=== PATIENT | male | born 1990 | race Caucasian/White ===

== ENCOUNTER 2023-04-28 12:24 | Outpatient (OUT) | payer OTHER, SELFPAY ==
--- NOTE | 2023-04-28 12:33 | XR_ITS ---
The [address] [address] Patient Name: CARMEN JONES MRN: [id number] date: 1990 Sex: M Assigned Patient Location: [facility] [[email or web address] Accession/Order Number: [id number] Exam Date: 04/28/2023 13:00 Report Date: 04/28/2023 13:20 At the request of: CINDY BELL Procedure: XR chest 2V EXAM: XR chest 2V HISTORY: PRE OP EXAM COMPARISON: None. TECHNIQUE: PA and lateral views of the chest. FINDINGS: The cardiomediastinal silhouette is normal. No focal consolidation is identified. There is no pneumothorax. No pleural effusion is noted. The osseous structures are intact. XR/XR chest 2V IMPRESSION: No acute cardiopulmonary process. Electronically authenticated by: JUAN TERRY Date: 04/28/2023 13:20
--- NOTE | 2023-04-28 13:06 | PM.PRESUREVA ---
History of Present Illness History of Present Illness Chief complaint: left thumb ulnar collateral ligament tear Narrative: Patient presents for preadmission testing. Please see HPI from Dr. Zhu dated 04/28/2023. Review of Systems ROS Narrative REVIEW OF SYSTEMS: Negative except as stated in HPI, ten or more systems reviewed. Constitutional: No fever , chills, weakness ENT: No sore throat or epistaxis Cardiovascular: No edema, chest pain, palpitations, or activity intolerance Respiratory: No shortness of breath, cough, or wheezing Gastrointestinal: No abdominal pain, constipation, diarrhea, or vomiting Genitourinary: No dysuria or hematuria Neurological: No numbness, tingling, weakness, or headache Psychiatric: No mood changes PFSH PFS Medical History (Updated 04/28/23 @ 12:50 by Caty Paulino NP) Surgical History (Updated 04/28/23 @ 12:50 by Caty Paulino NP) Social History (Updated 04/28/23 @ 12:48 by Caty Paulino NP) Within the past year, how often did you have a drink containing alcohol: never Score interpretation: A score less than 4 is consistent with normal alcohol consumption. 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 Highest level of school completed/degree received: high school graduate Meds Home Medications and Allergies Home Medications Medication Instructions Recorded Confirmed Type eluxadoline 100 mg tablet (Viberzi) 100 mg PO BID 04/28/23 04/28/23 History hydrocodone 5 mg-acetaminophen 325 1 tab PO Q6H PRN pain 04/28/23 04/28/23 History mg tablet omeprazole 40 mg capsule,delayed 40 mg PO DAILY 04/28/23 04/28/23 History release Allergies Allergy/AdvReac Type Severity Reaction Status Date / Time No Known Drug Allergies Allergy Verified 04/28/23 12:46 Exam Narrative Exam Narrative: Constitutional: Awake, alert, comfortable, well-appearing, nontoxic, interactive, vital signs as charted Head: Normocephalic, atraumatic Neck: Supple, normal appearance, normal range of motion, no meningeal signs, no lymphadenopathy Respiratory: No respiratory distress, breath sounds clear Cardiovascular: Regular rate and rhythm, strong and regular heart tones Psychiatric: Oriented ?3, normal affect Assessment and Plan Assessment and Plan (1) Ligament tear: Plan Left thumb ulnar collateral ligament repair versus reconstruction with palmaris longus, possible pinning scheduled with Dr. Zhu 05/01/2023.
[2023-04-28 13:26] LABS: Basophils Percent Auto 0.3 % (0.2-2.0); Eosinophils Percent Auto 0.7 % (0.9-7.0); Hematocrit 43.7 % (42.0-54.0); Hemoglobin 14.9 g/dL (14.0-18.0); Immature Granulocytes Abs Auto 0.02 10^3/uL (0.00-0.03); Immature Granulocytes Pct Auto 0.3 % (0.0-0.5); Lymphocytes Absolute Auto 1.8 10^3/uL (1.2-3.8); Lymphocytes Percent Auto 30.2 % (20.5-60.0); Mean Corpuscular HGB Conc 34.1 g/dL (29.9-35.2); Mean Corpuscular Hemoglobin 30.4 pg (25.9-34.0); Mean Corpuscular Volume 89.2 fL (80.0-94.0); Mean Platelet Volume 11.8 fL (9.5-13.5); Monocytes Absolute Auto 0.6 10^3/uL (0.3-0.8); Monocytes Percent Auto 9.5 % (1.7-12.0); Neutrophils Absolute Auto 3.5 10^3/uL (1.4-6.5); Platelet Count 153 10^3/uL (150-450)
[2023-04-28 13:37] LABS: Anion Gap 13.6; BUN Creatinine Ratio 19.4; Calcium 9.3 mg/dL (8.5-10.1); Carbon Dioxide 28.9 mmol/L (21.0-32.0); Chloride 104 mmol/L (98-107); Estimated GFR (African America >60 (>=60); Estimated GFR (Non-African Ame >60 (>=60); Glucose 91 mg/dL (74-106); Potassium 3.5 mmol/L (3.5-5.1); Sodium 143 mmol/L (136-145)
== END 2023-04-28 12:25 | disposition home or self-care (01) ==
PROVIDERS: Visit Provider Orthopaedic Surgery
DX: Z01.810 Encounter for preprocedural cardiovascular examination (principal); Z01.812 Encounter for preprocedural laboratory examination; S63.682A Other sprain of left thumb, initial encounter; F17.290 Nicotine dependence, other tobacco product, uncomplicated
CPT/HCPCS: 36415; 71046; 80048; 85025; G0463

== ENCOUNTER 2023-05-01 11:31 | Day surgery (SDC) | payer OTHER, SELFPAY ==
[2023-04-28 13:03] VITALS: BP 123/77; PULSE 67; RESP 16; TEMP 36.6; O2SAT 95; BMI 23.8
[2023-05-01] VITALS (9 sets, daily range): BP systolic 123–169; BP diastolic 76–106; PULSE 64–88; RESP 10–26; TEMP 36.2–36.9; O2SAT 97–100; BMI 23.8
--- NOTE | 2023-05-01 | XR_ITS ---
The [address] [address] Patient Name: CARMEN JONES MRN: [id number] date: 1990 Sex: M Assigned Patient Location: [facility] Current Patient Location: Accession/Order Number: [id number] Exam Date: 05/01/2023 13:30 Report Date: 05/01/2023 15:49 At the request of: CINDY BELL Procedure: XR finger LT min 2V EXAM: XR finger LT min 2V HISTORY: LT THUMB ULNAR COLLATERAL LIGAMENT REPAIR COMPARISON: None. XR/XR finger LT min 2V Impression: 1. Operative fluoroscopy was provided and 3 spot images of the left first phalanx were obtained. Electronically authenticated by: NATALIE DAVIS Date: 05/01/2023 15:49
[2023-05-01] MEDS: LACTATED RINGER'S SOLUTION 1,000 ML 50 ML IV (12:10)
[2023-05-01] MEDS: CEFAZOLIN SODIUM/DEXTROSE,ISO 2 GM/50 ML PIGGYBACK IV (13:25)
[2023-05-01] MEDS: BUPIVACAINE HCL 0.5% PF 50 MG/10 ML VIAL 5 ML INJ (13:37)
[2023-05-01] MEDS: LIDOCAINE HCL 1%-EPINEPHRINE 1:100,000 20 ML MDV 5 ML INJ (13:38)
--- NOTE | 2023-05-01 15:00 | P.ORPRC_ITS ---
Procedure Note Date of procedure: 05/01/23 Pre-op diagnosis: Left thumb ulnar collateral ligament tear at metacarpal phalangeal joint Post-op diagnosis: same as pre-op Procedure: Procedure: Left thumb ulnar collateral ligament repair Operative procedure: After informed consent was obtained the patient brought to the operating room where a general anesthetic was administered. Median nerve block and ring block for the superficial branch of radial nerve was performed with an equal mixture of 5 mL 1% lidocaine with epinephrine and 5 mL 0.5% Marcaine plain. A well- padded proximal arm tourniquet was placed. The left arm was prepped and draped in the usual sterile fashion. A 3-1/2 cm incision was made in the mid axial line centered over the ulnar collateral ligament at the metacarpophalangeal joint. Blunt dissection was carried down through soft tissue in order to preserve digital neurovascular structures. The abductor aponeurosis had been torn. The joint was subluxed. The ulnar collateral ligament was identified. This was in good condition and was easily mobilized to its insertion onto the proximal phalanx. Metacarpal head and articular cartilage at the base of the proximal phalanx were inspected and no articular cartilage damage was evident. The joint was irrigated. There was performed using the Arthrex internal brace system. A 2 guidepins were first placed 1 at the origin of the ulnar collateral ligament at the metacarpal and 1 at the ulnar collateral ligament insertion on the proximal phalanx. X-rays confirmed appropriate placement. These were then overdrilled with using the stop at 1 cm. Next a 2-0 FiberWire suture was placed in a running locking fashion within the ulnar collateral ligament. This was then attached to DX swivel lock SL fork tip anchor along with the preloaded labral tape. The ligament was repaired to the proximal phalanx resulting in a nice reduction of the joint and stable repair. The 2 labral tape ends were then crossed over the top of the repair and inserted to the previously drilled hole in the metacarpal secured with a second DX swivel lock SL fork tip anchor. Solid repair was achieved. With the repair there was complete stability to the ulnar collateral ligament with reduced joint. X-rays revealed a reduced joint in multiple planes. The abductor aponeurosis was repaired with 4-0 Vicryl suture in an interrupted [id number] fashion. Tourniquet was deflated wound was irrigated and closed in standard fashion with absorbable suture. Steri- Strips and sterile dressing were placed. A plaster thumb spica splint was placed. Patient was awakened and brought to the recovery room in stable condition. There were no intraoperative or immediate postoperative complications. Anesthesia: General-LMA Estimated blood loss (mL): 10 Pathology: none sent Condition: stable Disposition: same day
--- NOTE | 2023-05-01 15:35 | PC.NURSE ---
PATIENT STATES HE HAS A HEADACHE ORAL PAIN MEDS GIVEN FOR
== END 2023-05-01 15:46 | disposition home or self-care (01) ==
PROVIDERS: Visit Provider Orthopaedic Surgery
PROC: (CPT 26540; principal; 2023-05-01 12:50)
DX: S63.641A Sprain of metacarpophalangeal joint of right thumb, initial encounter (principal); F17.290 Nicotine dependence, other tobacco product, uncomplicated
CPT/HCPCS: 26540; 36415; 73140; 76000; C1713; J2704

== ENCOUNTER 2023-06-19 16:09 | Emergency (ER) | payer OTHER, SELFPAY ==
[2023-06-19] VITALS (16 sets, daily range): BP systolic 124–151; BP diastolic 81–89; PULSE 61–86; RESP 12–24; TEMP 36.9; O2SAT 98–100; BMI 21.6
--- NOTE | 2023-06-19 16:21 | XR_ITS ---
The [address] [address] Patient Name: CARMEN JONES MRN: [id number] date: 1990 Sex: M Assigned Patient Location: ED.MAIN Current Patient Location: ER Accession/Order Number: [id number] Exam Date: 06/19/2023 16:48 Report Date: 06/19/2023 16:58 At the request of: NEMESIO SEGUNDO Procedure: XR chest 1V EXAM: XR chest 1V HISTORY: pain COMPARISON: 04/28/2023 TECHNIQUE: Single AP view of the chest. FINDINGS: The lungs are clear. No pleural effusion or pneumothorax. The cardiomediastinal silhouette is unremarkable. No acute osseous or soft tissue abnormality. XR/XR chest 1V IMPRESSION: 1. No acute cardiopulmonary process. Electronically authenticated by: GRAY BASHIR Date: 06/19/2023 16:58
--- NOTE | 2023-06-19 16:21 | ECG_ITS ---
The [facility] Test Date: 2023-06-19 Pat Name: CARMEN JONES Department: Room: - Gender: Male Clinical Quality Analyst: : 1990 Requested By: Order Number: [id number] Reading MD: MELODY BOSTON Measurements Intervals Mobile Rate: 71 P: 90 WV: 140 QRS: 89 QRSD: 98 T: 17 QT: 372 QTc: 394 Interpretive Statements 1100 Sinus rhythm 2440 Incomplete right bundle branch block 4068 Nonspecific Twave abnormality 5211 Minimal voltage criteria for LVH, may be normal variant 9130 borderline ECG No previous ECG available for comparison Electronically Signed On 06-19-2023 20:06:24 EDT by MELODY BOSTON
--- NOTE | 2023-06-19 16:32 | ED.GENADUL1 ---
HPI - General Adult General Chief complaint: Chest Pain Stated complaint: BACK PAIN RADIATING TO CP Time Seen by Provider: 06/19/23 16:12 Source: patient Mode of arrival: walk-in Limitations: no limitations History of Present Illness HPI narrative: patient here with a multitude of symptoms. He had repair of a thumb ligamentous injury and had general anesthesia for that he says he just hasn't felt very good since that time. Recently he's been having symptoms of dizziness. He states he feels like he might pass out , he's weak and fatigued and tired. He is not been running a fever. He has irritable bowel syndrome with constipation. He was and does admit to using pain medication postoperatively. He's had several Emergency Room visits and multiple visits to his primary care doctor. He said to today and yesterday he had some discomfort in the middle of his back that radiates to the front of his chest and that seems to be the chief concern today. He does not have hypertension diabetes or elevation of his cholesterol. He is not a previous coronary artery disease. He's not had heart catheterizations or stress test of them aware of. His vitals here shows slight elevation of his blood pressure otherwise normal. 12-lead EKG was done on his arrival showed an incomplete right bundle-branch block but no STEMI. Related Data Home Medications Medication Instructions Recorded Confirmed eluxadoline 100 mg tablet (Viberzi) 100 mg PO BID 04/28/23 06/19/23 pantoprazole 40 mg tablet,delayed 40 mg PO BID 06/19/23 06/19/23 release Allergies Allergy/AdvReac Type Severity Reaction Status Date / Time No Known Drug Allergies Allergy Verified 04/28/23 12:46 [facility] Medical History (Updated 06/19/23 @ 17:49 by Isak Chicas MD) COVID-19 ?U07.1 - COVID-19 (ICD-10) GERD (gastroesophageal reflux disease) ?K21.9 - Gastro-esophageal reflux disease without esophagitis (ICD-10) Ligament tear ?T14.8XXA - Other injury of unspecified body region, initial encounter (ICD-10) Surgical History (Updated 04/28/23 @ 12:50 by Caty Paulino NP) History of colonoscopy ?Z98.890 - Other specified postprocedural states (ICD-10) Social History (Updated 04/28/23 @ 12:48 by Caty Paulino NP) Within the past year, how often did you have a drink containing alcohol: never Score interpretation: A score less than 4 is consistent with normal alcohol consumption. Smoking status: Light tobacco smoker Do you use any of these nicotine containing products: vaping products Non-prescribed substance use: denies use Previous occupational history: equipment operator/laborer Highest level of school completed/degree received: high school graduate Exam Narrative Exam Narrative: awake alert pleasant maintains good eye contact. Described all his surgeries and medication usage accurately. Constitutional he does not appear ill or toxic moves about comfortably. Speech cognition appear to be normal his color is good his skin is warm and dry is not pale, has no diaphoresis no scleral icterus. Examination chest shows heart sounds be normal with no S3-S4 or murmur. Restoril his lungs are clear with no wheezes rales or rhonchi he is not coughing and has no wheezing. Extremities have no evidence of phlebitis or edema. Examination abdomen discloses no guarding rebound rigidity or peritoneal findings. Constitutional Vital Signs, click to edit/add: Last Vital Signs Temp 98.5 F 06/19/23 16:12 Pulse 86 06/19/23 16:12 Resp 20 06/19/23 16:12 BP 151/89 H 06/19/23 16:12 Pulse Ox 99 06/19/23 16:12 O2 Del Method Room Air 06/19/23 16:12 Course Vital Signs Vital signs: Vital Signs Temperature 98.5 F 06/19/23 16:12 Pulse Rate 86 06/19/23 16:12 Respiratory Rate 20 06/19/23 16:12 Blood Pressure 151/89 H 06/19/23 16:12 Pulse Oximetry 99 06/19/23 16:12 Oxygen Delivery Method Room Air 06/19/23 16:12 Temperature 98.5 F 06/19/23 16:12 Pulse Rate 86 06/19/23 16:12 Respiratory Rate 20 06/19/23 16:12 Blood Pressure 151/89 H 06/19/23 16:12 Pulse Oximetry 99 06/19/23 16:12 Oxygen Delivery Method Room Air 06/19/23 16:12 Medical Decision Making MDM Narrative Medical decision making narrative: patient presents with a number different complaints. Clinical evaluation here did not disclose any abnormalities on the exam. His chest x-ray does not show any pulmonary abnormalities his EKG was sinus rhythm rate seventy-one there is no [address] segment elevation arrhythmia or other abnormality. Troponin is normal. His blood workup to disclose hypokalemia which can cause a number symptoms and we will address that with a prescription. He is to follow-up with his primary care doctor. Lab Data Labs: Lab Results 06/19/23 Range/Units 16:15 WBC 6.5 (4.0-11.0) 10^3/uL RBC 4.79 (4.70-6.10) 10^6/uL Hgb 14.6 (14.0-18.0) g/dL Hct 42.9 (42.0-54.0) % MCV 89.6 (80.0-94.0) fL MCH 30.5 (25.9-34.0) pg MCHC 34.0 (29.9-35.2) g/dL RDW 11.9 (11.0-15.0) % Plt Count 170 (150-450) 10^3/uL MPV 11.5 (9.5-13.5) fL Neut % (Auto) 66.0 (43.0-75.0) % Lymph % (Auto) 24.9 (20.5-60.0) % Grand % (Auto) 8.0 (1.7-12.0) % Eos % (Auto) 0.3 L (0.9-7.0) % Baso % (Auto) 0.5 (0.2-2.0) % Neut # (Auto) 4.3 (1.4-6.5) 10^3/uL Lymph # (Auto) 1.6 (1.2-3.8) 10^3/uL Grand # (Auto) 0.5 (0.3-0.8) 10^3/uL Eos # (Auto) 0.0 (0.0-0.7) 10^3/uL Baso # (Auto) 0.0 (0.0-0.1) 10^3/uL Abs Immat Gran (auto) 0.02 (0.00-0.03) 10^3/uL Imm/Tot Granulo (auto) 0.3 (0.0-0.5) % Sodium 141 (136-145) mmol/L Potassium 3.2 L (3.5-5.1) mmol/L Chloride 105 (98-107) mmol/L Carbon Dioxide 23.9 (21.0-32.0) mmol/L Anion Gap 15.3 BUN 10.0 (7.0-18.0) mg/dL Creatinine 0.91 (0.70-1.30) mg/dL Est GFR ( Amer) >60 (>=60) Est GFR (Non-Af Amer) >60 (>=60) BUN/Creatinine Ratio 11.0 Glucose 100 (74-106) mg/dL Calcium 9.6 (8.5-10.1) mg/dL Total Bilirubin 0.6 (0.2-1.0) mg/dL AST 11 L (15-37) U/L ALT 16 (16-63) U/L Alkaline Phosphatase 48 (46-116) U/L Troponin I High Sens 7.2 (4.0-76.1) pg/mL NT-Pro-B Natriuret Pep 46.0 (<=450.0) pg/mL Total Protein 7.7 (6.4-8.2) g/dL Albumin 4.6 (3.4-5.0) g/dL Globulin 3.1 g/dL Albumin/Globulin Ratio 1.5 Discharge Plan Discharge Chief Complaint: Chest Pain Clinical Impression: Acute hypokalemia Patient Disposition: Home, Self-Care Time of Disposition Decision: 17:49 Prescriptions / Home Meds: No Action Viberzi 100 mg tablet 100 mg PO BID pantoprazole 40 mg tablet,delayed release (DR/EC) 40 mg PO BID Additional Instructions: take potassium tablets for three days. Follow-up with primary care doctor Stand Alone Forms: Portal Instructions Referrals: Physician,Non-Staff, MD [Primary Care Provider] - 1 week
[2023-06-19 16:38] LABS: Basophils Percent Auto 0.5 % (0.2-2.0); Eosinophils Percent Auto 0.3 % (0.9-7.0); Hematocrit 42.9 % (42.0-54.0); Hemoglobin 14.6 g/dL (14.0-18.0); Immature Granulocytes Abs Auto 0.02 10^3/uL (0.00-0.03); Immature Granulocytes Pct Auto 0.3 % (0.0-0.5); Lymphocytes Absolute Auto 1.6 10^3/uL (1.2-3.8); Lymphocytes Percent Auto 24.9 % (20.5-60.0); Mean Corpuscular Hemoglobin 30.5 pg (25.9-34.0); Mean Corpuscular Volume 89.6 fL (80.0-94.0); Mean Platelet Volume 11.5 fL (9.5-13.5); Monocytes Absolute Auto 0.5 10^3/uL (0.3-0.8); Neutrophils Absolute Auto 4.3 10^3/uL (1.4-6.5); Platelet Count 170 10^3/uL (150-450); Red Blood Count 4.79 10^6/uL (4.70-6.10); Red Cell Distribution Width 11.9 % (11.0-15.0); White Blood Count 6.5 10^3/uL (4.0-11.0)
[2023-06-19 17:30] LABS: Alanine Aminotransferase 16 U/L (16-63); Albumin Globulin Ratio 1.5; Albumin Level 4.6 g/dL (3.4-5.0); Alkaline Phosphatase 48 U/L (46-116); Anion Gap 15.3; Aspartate Amino Transferase 11 U/L (15-37); Bilirubin Total 0.6 mg/dL (0.2-1.0); Calcium 9.6 mg/dL (8.5-10.1); Carbon Dioxide 23.9 mmol/L (21.0-32.0); Chloride 105 mmol/L (98-107); Estimated GFR (African America >60 (>=60); Estimated GFR (Non-African Ame >60 (>=60); Globulin 3.1 g/dL; Glucose 100 mg/dL (74-106); Potassium 3.2 mmol/L (3.5-5.1); Sodium 141 mmol/L (136-145); Total Protein 7.7 g/dL (6.4-8.2)
[2023-06-19 17:36] LABS: Troponin I High Sensitivity 7.2 pg/mL (4.0-76.1)
[2023-06-19 17:55] LABS: C Reactive Protein <0.2 mg/dL (<=1.0)
== END 2023-06-19 18:20 | disposition home or self-care (01) ==
PROVIDERS: Emergency Provider Emergency Medicine Emergency Medical Services
DX: E87.6 Hypokalemia (principal); K58.1 Irritable bowel syndrome with constipation; I45.10 Unspecified right bundle-branch block; Z79.899 Other long term (current) drug therapy
CPT/HCPCS: 36415; 71045; 80053; 83880; 84484; 85025; 86140; 93005; 99285